=== PATIENT | female | born 1950 | race Caucasian/White ===

== ENCOUNTER 2020-02-17 00:29 | Outpatient (CLI) | payer OTHER, SELFPAY ==
--- NOTE | 2020-02-17 09:15 | DI.NM_ITS ---
APPROVED REPORT Exam: Pharmacologic Patient Location: Out-Patient Room/Bed: Stress Nurse: Merry Abarca RN BMI: 36.13 Baseline Rhythm: Bradycardia with irregular heart rate. Indications: Patient testing today for further risk stratification and pre op clearance for knee repl acement. Patient was hospitlized in December in [place] for Urosepis, during that time her troponins wer e mildly elevated. Medical History Medical History: Diastolic Heart Failure, Atrial Fibrillation onset 09/24/2019, Paroxysmal Atrial Fib rillation, S/P AF Ablation [facility] [place] 03/27/2019, Obesity, ? Cirrhosis. Cardiac Medications: Eliquis, Metoprolol Succinate. Allergies: No known drug allergies Cardiac Risk Factors: FHX of CAD, HTN, Hyperlipidemia Previous Cardiac Procedures: Ablation Pretest Chest Pain Characteristics: No chest pain Exercise History: Sedentary Physical Disabilities: Knees Lung Sounds: Clear to auscultation Heart Sounds: Irregular Stress Test Details Test: Pharmacologic stress testing performed using 0.4 mg of regadenoson per 5 mL given IV over 10 s econds. Reason for pharmacologic stress test: physical limitation. Nuclear Acquisition: Rest Tc-99m/Stress Tc-99m 1 day Rest Isotope: Tc-99m Sestamibi. Dose: 12.3 Date: 02/17/2020 Injection Time: 0920 Stress Isotope: Tc-99m Sestamibi. Dose: 37.7 Date: 02/17/2020 Injection Time: 1112 HR Resting HR Supine: 51 bpm Max Heart Rate (APMHR): 150 bpm Target HR (85% APMHR): 127 bpm Max HR Achieved: 86 bpm % of APMHR: 57 BP Resting BP Supine: 166/80 mmHg Max BP: 184/72 mmHg ECG Resting ECG: Sinus Rhythm Stress ECG: Sinus Rhythm ST Change: Normal Arrhythmia: None Recovery ECG: Sinus Rhythm Recovery ST Change: Normal Recovery Arrhythmia: None Clinical Stress Symptoms: Jaw Tightness (10/17) post Lexiscan injection . Stress ECG Conclusion 1. Is a pharmacological stress test. 2. The EKG portion of the exam is nondiagnostic due to inadequate heart rate augmentation. Stress Test Summary STAGE HR BP Symptoms NOTES Supine 51 166/80 1 min post Lexiscan injection 86 180/74 3 min post Lexiscan injection 82 184/72 6 min post Lexiscan injection 77 172/78 MPI Conclusion Ejection fraction was 49% with stress. There were no wall motion abnormalities. There is no evidence of ischemia on the imaging portion of this exam. This represents a normal SPECT stress test. Radiologist Interpretation Radiologist Interpretation by: Andrea Bourne MD Interpretation Date/Time: 02/17/2020 13:48:42
[2020-02-17] MEDS: Regadenoson 0.4 MG/5 ML SYR IVP (11:24)
== END 2020-02-17 00:49 ==
PROVIDERS: PCP Nurse Practitioner Family; Visit Provider Internal Medicine Interventional Cardiology
DX: I50.9 Heart failure, unspecified (principal); I48.0 Paroxysmal atrial fibrillation; R00.1 Bradycardia, unspecified; Z82.49 Family history of ischemic heart disease and other diseases of the circulatory system; Z01.810 Encounter for preprocedural cardiovascular examination
CPT/HCPCS: 78452; 93016; 93018; 93017; J2785

== ENCOUNTER 2022-10-11 13:06 | Outpatient (CLI) | payer MEDICARE, SELFPAY ==
--- NOTE | 2022-10-11 13:00 | RT.EKG_ITS ---
APPROVED REPORT Exam: Resting ECG Reason for Exam: f/u ekg Patient Location: O HR:70 bpm ECG Measurements Heart Rate [address] 196 P 35 QRSd 104 QRS -15 QT 422 T 59 QTc 456 Conclusion Sinus rhythm...normal P axis, V-rate 50- 99 Borderline left axis deviation...QRS axis (-15,-29) Borderline T abnormalities, anterior leads...T flat or neg, V2-V4 Baseline wander in lead(s) I,II,aVR
== END 2022-10-11 13:07 | disposition home or self-care (01) ==
LOC: DI.CARD 13:08
PROVIDERS: PCP Nurse Practitioner Family; Visit Provider Internal Medicine Cardiovascular Disease
DX: Z86.79 Personal history of other diseases of the circulatory system (principal); Z98.890 Other specified postprocedural states; I48.19 Other persistent atrial fibrillation
CPT/HCPCS: 93010

== ENCOUNTER → 2022-10-11 13:32 | Outpatient (BNVA) | payer MEDICARE, SELFPAY | PROVIDERS: PCP Nurse Practitioner Family; Referring Provider Nurse Practitioner Family; Visit Provider Internal Medicine Cardiovascular Disease | DX: I48.19 Other persistent atrial fibrillation (principal); Z86.79 Personal history of other diseases of the circulatory system; Z98.890 Other specified postprocedural states | CPT/HCPCS: 93005; 99203 ==